=== PATIENT | female | born 1950 | race Caucasian/White ===

== ENCOUNTER 2016-11-24 13:17 | Outpatient (CLI) | payer SELFPAY | END 2016-11-24 13:18 | disposition home or self-care (01) | DX: Z01.89 Encounter for other specified special examinations (principal) ==

== ENCOUNTER 2018-02-26 08:00 | Outpatient (CLI) | payer MEDICARE ==
[2018-02-26 18:52] LABS: BASOPHILS # (AUTO) 0.1 10^3/uL (0.0-0.1); BASOPHILS % (AUTO) 1.5 %; EOSINOPHILS # (AUTO) 0.1 10^3/uL (0.0-0.7); EOSINOPHILS % (AUTO) 1.3 %; HGB - HEMOGLOBIN 15.4 g/dL (12.0-16.0); LYMPHOCYTES # (AUTO) 1.9 10^3/uL (1.5-3.5); LYMPHOCYTES % (AUTO) 38.4 %; MEAN CORPUSCULAR HEMOGLOBIN 31.5 pg (27.0-31.0); MEAN CORPUSCULAR HGB CONC 32.8 g/dL (32.0-36.0); MEAN CORPUSCULAR VOLUME 95.8 fL (81.0-99.0); MEAN PLATELET VOLUME 8.7 fL (7.9-10.8); MONOCYTES # (AUTO) 0.4 10^3/uL (0.0-1.0); MONOCYTES % (AUTO) 8.1 %; NEUTROPHILS # (AUTO) 2.5 10^3/uL (1.5-6.6); NEUTROPHILS % (AUTO) 50.7 %; PLT - PLATELET COUNT 329 10^3/uL (130-450); RED BLOOD COUNT 4.89 10^6/uL (4.20-5.40); WHITE BLOOD COUNT 4.9 x10^3/uL (4.8-10.8)
[2018-02-26 19:08] LABS: ALBUMIN 4.8 g/dL (3.2-5.5); ALBUMIN/GLOBULIN RATIO 1.9 (1.0-2.2); ALKALINE PHOSPHATASE 31 IU/L (42-121); ALT ALANINE AMINOTRANSFERASE 21 IU/L (10-60); AST ASPARTATE AMINOTRANSFERASE 21 IU/L (10-42); BILIRUBIN,TOTAL 0.6 mg/dL (0.2-1.0); BUN - BLOOD UREA NITROGEN 18 mg/dL (6-20); CALCIUM 9.2 mg/dL (8.5-10.3); CARBON DIOXIDE - CO2 24 mmol/L (21-32); CHLORIDE 103 mmol/L (101-111); CHOL/HDL RATIO 3.1 (<4.4); CHOLESTEROL 367 mg/dL; CREATININE 0.5 mg/dL (0.4-1.0); GFR - MDRD 123 (>89); GLUCOSE 99 mg/dL (70-100); HDL CHOLESTEROL 117 mg/dL; LDL CHOLESTEROL,CALCULATED 240 mg/dL; LDL/HDL RATIO 2.1 (<4.4); SODIUM 137 mmol/L (135-145); TOTAL PROTEIN 7.3 g/dL (6.7-8.2); VLDL CHOLESTEROL 10 mg/dL
== END 2018-02-26 08:01 | disposition home or self-care (01) ==
LOC: LAB.WCP 08:00
PROVIDERS: ATTEND Physician Assistant Medical
DX: E78.5 Hyperlipidemia, unspecified (principal); L25.9 Unspecified contact dermatitis, unspecified cause
CPT/HCPCS: 36415; 80053; 80061; 83721; 85025

== ENCOUNTER 2018-06-18 10:27 | Outpatient (CLI) | payer MEDICARE ==
[2018-06-18 19:21] LABS: ALBUMIN 4.4 g/dL (3.2-5.5); ALBUMIN/GLOBULIN RATIO 1.7 (1.0-2.2); ALKALINE PHOSPHATASE 33 IU/L (42-121); ALT ALANINE AMINOTRANSFERASE 20 IU/L (10-60); AST ASPARTATE AMINOTRANSFERASE 20 IU/L (10-42); BILIRUBIN,TOTAL 0.6 mg/dL (0.2-1.0); BUN - BLOOD UREA NITROGEN 14 mg/dL (6-20); CALCIUM 8.8 mg/dL (8.5-10.3); CARBON DIOXIDE - CO2 25 mmol/L (21-32); CHLORIDE 105 mmol/L (101-111); CHOL/HDL RATIO 3.6 (<4.4); CHOLESTEROL 319 mg/dL; CREATININE 0.5 mg/dL (0.4-1.0); GFR - MDRD 122 (>89); GLUCOSE 98 mg/dL (70-100); HDL CHOLESTEROL 88 mg/dL; LDL CHOLESTEROL,CALCULATED 219 mg/dL; LDL/HDL RATIO 2.5 (<4.4); SODIUM 140 mmol/L (135-145); VLDL CHOLESTEROL 12 mg/dL
[2018-06-21 15:40] LABS: 18 KD (IGG) BAND NON-REACTIVE; 23 KD (IGG) BAND NON-REACTIVE; 23 KD (IGM) BLOT NON-REACTIVE; 28 KD (IGG) BAND NON-REACTIVE; 30 KD (IGG) BAND NON-REACTIVE; 39 KD (IGG) BAND NON-REACTIVE; 39 KD (IGM) BLOT NON-REACTIVE; 41 KD (IGG) BAND NON-REACTIVE; 41 KD (IGM) BLOT NON-REACTIVE; 45 KD (IGG) BAND NON-REACTIVE; 58 KD (IGG) BAND NON-REACTIVE; 66 KD (IGG) BAND NON-REACTIVE; 93 KD (IGG) BAND NON-REACTIVE
== END 2018-06-18 10:28 | disposition home or self-care (01) ==
LOC: LAB.WCP 10:27
PROVIDERS: ATTEND Physician Assistant Medical
DX: E78.5 Hyperlipidemia, unspecified (principal); R21 Rash and other nonspecific skin eruption
CPT/HCPCS: 36415; 80053; 80061; 83721; 86617

== ENCOUNTER 2018-09-18 08:00 | Outpatient (CLI) | payer MEDICARE ==
[2018-09-18 13:24] LABS: CHOL/HDL RATIO 2.9 (<4.4); CHOLESTEROL 322 mg/dL; HDL CHOLESTEROL 111 mg/dL; LDL CHOLESTEROL,CALCULATED 201 mg/dL; LDL/HDL RATIO 1.8 (<4.4); VLDL CHOLESTEROL 10 mg/dL
== END 2018-09-18 23:59 | disposition home or self-care (01) ==
LOC: LAB.WCP 08:00
PROVIDERS: ATTEND Physician Assistant Medical
DX: E78.5 Hyperlipidemia, unspecified (principal)
CPT/HCPCS: 36415; 80061; 83721

== ENCOUNTER 2018-12-24 08:00 | Outpatient (CLI) | payer MEDICARE ==
[2018-12-24 19:51] LABS: CHOL/HDL RATIO 3.6 (<4.4); CHOLESTEROL 339 mg/dL; HDL CHOLESTEROL 93 mg/dL; LDL CHOLESTEROL,CALCULATED 233 mg/dL; LDL/HDL RATIO 2.5 (<4.4); VLDL CHOLESTEROL 13 mg/dL
== END 2018-12-24 23:59 | disposition home or self-care (01) ==
LOC: LAB.WCP 08:00
PROVIDERS: ATTEND Physician Assistant Medical
DX: E78.5 Hyperlipidemia, unspecified (principal)
CPT/HCPCS: 36415; 80061; 83721

== ENCOUNTER 2020-04-23 15:09 | Outpatient (CLI) | payer MEDICARE ==
--- NOTE | 2020-04-23 15:11 | XRAY Report ---
PROCEDURE: Tib/Fib LT INDICATIONS: LEFT LEG PAIN TECHNIQUE: 2 views of the tibia and fibula were acquired. COMPARISON: None FINDINGS: Bones: No fractures or dislocations. No suspicious bony lesions. Soft tissues: No suspicious soft tissue calcifications or masses. IMPRESSION: No trauma found, source of current pain is not identified. Reviewed by: Jose Alberto Ceja MD on 04/23/2020 3:10 PM PDT Approved by: Jose Alberto Ceja MD on 04/23/2020 3:10 PM PDT Station ID: [id number]
== END 2020-04-23 23:59 | disposition home or self-care (01) ==
LOC: DI.WCP 15:09
PROVIDERS: ATTEND Physician Assistant Medical
DX: M79.605 Pain in left leg (principal)

== ENCOUNTER 2021-02-16 08:00 | Outpatient (CLI) | payer MEDICARE ==
[2021-02-16 11:39] LABS: BASOPHILS # (AUTO) 0.1 10^3/uL (0.0-0.1); BASOPHILS % (AUTO) 1.5 %; EOSINOPHILS # (AUTO) 0.1 10^3/uL (0.0-0.7); EOSINOPHILS % (AUTO) 2.1 %; HCT - HEMATOCRIT 44.4 % (37.0-47.0); HGB - HEMOGLOBIN 14.5 g/dL (12.0-16.0); LYMPHOCYTES # (AUTO) 2.4 10^3/uL (1.5-3.5); MEAN CORPUSCULAR HEMOGLOBIN 30.9 pg (27.0-31.0); MEAN CORPUSCULAR HGB CONC 32.7 g/dL (32.0-36.0); MEAN CORPUSCULAR VOLUME 94.7 fL (81.0-99.0); MONOCYTES # (AUTO) 0.5 10^3/uL (0.0-1.0); MONOCYTES % (AUTO) 9.2 %; NEUTROPHILS # (AUTO) 2.2 10^3/uL (1.5-6.6); NEUTROPHILS % (AUTO) 41.8 %; PLT - PLATELET COUNT 316 10^3/uL (130-450); RED BLOOD COUNT 4.69 10^6/uL (4.20-5.40); RED CELL DISTRIBUTION WIDTH 13.2 % (12.0-15.0); WHITE BLOOD COUNT 5.2 x10^3/uL (4.8-10.8)
[2021-02-16 12:10] LABS: ALBUMIN 4.7 g/dL (3.2-5.5); ALBUMIN/GLOBULIN RATIO 2.2 (1.0-2.2); ALKALINE PHOSPHATASE 35 IU/L (42-121); ALT ALANINE AMINOTRANSFERASE 21 IU/L (10-60); AST ASPARTATE AMINOTRANSFERASE 20 IU/L (10-42); BILIRUBIN,TOTAL 0.5 mg/dL (0.2-1.0); BUN - BLOOD UREA NITROGEN 15 mg/dL (6-20); CALCIUM 9.2 mg/dL (8.5-10.3); CARBON DIOXIDE - CO2 25 mmol/L (21-32); CHLORIDE 104 mmol/L (101-111); CHOL/HDL RATIO 3.7 (<4.4); CHOLESTEROL 358 mg/dL; CREATININE 0.6 mg/dL (0.4-1.0); GFR - MDRD 99 (>89); GLUCOSE 99 mg/dL (70-100); HDL CHOLESTEROL 97 mg/dL; LDL CHOLESTEROL,CALCULATED 247 mg/dL; LDL/HDL RATIO 2.5 (<4.4); POTASSIUM 3.8 mmol/L (3.5-5.0); SODIUM 139 mmol/L (135-145); TOTAL PROTEIN 6.8 g/dL (6.7-8.2); TRIGLYCERIDES 70 mg/dL; VLDL CHOLESTEROL 14 mg/dL
== END 2021-02-16 23:59 | disposition home or self-care (01) ==
LOC: LAB.WCP 08:00
PROVIDERS: ATTEND Physician Assistant Medical
DX: E78.5 Hyperlipidemia, unspecified (principal); R42 Dizziness and giddiness
CPT/HCPCS: 36415; 80053; 80061; 83721; 85025

== ENCOUNTER 2021-03-28 13:00 | Outpatient (CLI) | payer MEDICARE | END 2021-03-28 23:59 | disposition home or self-care (01) | LOC: LAB.N 13:00 | PROVIDERS: ATTEND Family Medicine | DX: R39.9 Unspecified symptoms and signs involving the genitourinary system (principal) | CPT/HCPCS: 87077; 87086; 87181 ==

== ENCOUNTER 2021-03-31 09:00 | Outpatient (CLI) | payer MEDICARE | END 2021-03-31 23:59 | disposition home or self-care (01) | LOC: LAB.N 09:00 | PROVIDERS: ATTEND Nurse Practitioner | DX: R39.9 Unspecified symptoms and signs involving the genitourinary system (principal) | CPT/HCPCS: 87077; 87086; 87181 ==

== ENCOUNTER 2021-05-27 08:00 | Outpatient (CLI) | payer MEDICARE ==
[2021-05-27 18:18] LABS: CHOL/HDL RATIO 2.7 (<4.4); CHOLESTEROL 253 mg/dL; HDL CHOLESTEROL 93 mg/dL; LDL CHOLESTEROL,CALCULATED 148 mg/dL; LDL/HDL RATIO 1.6 (<4.4); TRIGLYCERIDES 58 mg/dL; VLDL CHOLESTEROL 12 mg/dL
== END 2021-05-27 23:59 | disposition home or self-care (01) ==
LOC: LAB.WCP 08:00
PROVIDERS: ATTEND Physician Assistant Medical
DX: E78.5 Hyperlipidemia, unspecified (principal)
CPT/HCPCS: 36415; 80061; 83721

== ENCOUNTER 2021-12-20 08:00 | Outpatient (CLI) | payer MEDICARE | END 2021-12-20 08:01 | disposition home or self-care (01) | LOC: LAB.N 08:00 | PROVIDERS: ATTEND Physician Assistant Medical | DX: U07.1 COVID-19 (principal); E78.5 Hyperlipidemia, unspecified | CPT/HCPCS: 36415; 80053; 80061; U0004; 83721 ==

== ENCOUNTER 2021-12-20 10:52 | Outpatient (CLI) | payer MEDICARE ==
[2021-12-20 19:06] LABS: ALBUMIN 4.4 g/dL (3.2-5.5); ALBUMIN/GLOBULIN RATIO 1.8 (1.0-2.2); ALKALINE PHOSPHATASE 38 IU/L (42-121); ALT ALANINE AMINOTRANSFERASE 23 IU/L (10-60); AST ASPARTATE AMINOTRANSFERASE 25 IU/L (10-42); BILIRUBIN,TOTAL 0.5 mg/dL (0.2-1.0); BUN - BLOOD UREA NITROGEN 13 mg/dL (6-20); CALCIUM 8.8 mg/dL (8.5-10.3); CARBON DIOXIDE - CO2 25 mmol/L (21-32); CHLORIDE 104 mmol/L (101-111); CHOL/HDL RATIO 2.1 (<4.4); CHOLESTEROL 194 mg/dL; CREATININE 0.6 mg/dL (0.4-1.0); GFR - MDRD 98 (>89); GLUCOSE 94 mg/dL (70-100); HDL CHOLESTEROL 91 mg/dL; LDL CHOLESTEROL,CALCULATED 94 mg/dL; POTASSIUM 3.5 mmol/L (3.5-5.0); SODIUM 137 mmol/L (135-145); TOTAL PROTEIN 6.9 g/dL (6.7-8.2); TRIGLYCERIDES 45 mg/dL; VLDL CHOLESTEROL 9 mg/dL
== END 2021-12-20 10:53 | disposition home or self-care (01) ==
LOC: LAB.N 10:52
PROVIDERS: ATTEND Physician Assistant Medical
DX: E78.5 Hyperlipidemia, unspecified (principal)
CPT/HCPCS: 36415; 80053; 80061; 83721

== ENCOUNTER 2022-07-05 07:16 | Outpatient (CLI) | payer MEDICARE ==
[2022-07-05 13:03] LABS: ALBUMIN/GLOBULIN RATIO 2.3 (1.0-2.2); ALKALINE PHOSPHATASE 31 IU/L (42-121); ALT ALANINE AMINOTRANSFERASE 31 IU/L (10-60); AST ASPARTATE AMINOTRANSFERASE 23 IU/L (10-42); BILIRUBIN,TOTAL 0.5 mg/dL (0.2-1.0); BUN - BLOOD UREA NITROGEN 18 mg/dL (6-20); CALCIUM 9.4 mg/dL (8.5-10.3); CARBON DIOXIDE - CO2 25 mmol/L (21-32); CHLORIDE 102 mmol/L (101-111); CHOL/HDL RATIO 2.8 (<4.4); CHOLESTEROL 259 mg/dL; CREATININE 0.7 mg/dL (0.4-1.0); GFR - MDRD 82 (>89); GLUCOSE 109 mg/dL (70-100); HDL CHOLESTEROL 93 mg/dL; LDL CHOLESTEROL,CALCULATED 156 mg/dL; LDL/HDL RATIO 1.7 (<4.4); SODIUM 136 mmol/L (135-145); TOTAL PROTEIN 7.2 g/dL (6.7-8.2); TRIGLYCERIDES 50 mg/dL; VLDL CHOLESTEROL 10 mg/dL
== END 2022-07-05 07:17 | disposition home or self-care (01) ==
LOC: LAB.N 07:16
PROVIDERS: ATTEND Physician Assistant Medical
DX: E78.5 Hyperlipidemia, unspecified (principal)
CPT/HCPCS: 36415; 80053; 80061; 83721

== ENCOUNTER 2022-09-13 15:17 | Outpatient (CLI) | payer MEDICARE ==
--- NOTE | 2022-09-13 20:29 | XRAY Report ---
PROCEDURE: Pelvis 1 View INDICATIONS: RT HIP PAIN TECHNIQUE: 2 view(s) of the pelvis acquired. COMPARISON: Hip radiographs 03/30/2016. FINDINGS: Bones: No fractures or dislocations. 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 Minimally progressed com pared to 2016. No suspicious bony lesions. Soft tissues: Visualized bowel gas pattern is normal. No suspicious soft tissue calcifications. IMPRESSION: Moderate right hip DJD. Mild left hip DJD. Reviewed by: Trevor Ruvalcaba MD on 09/13/2022 8:28 PM PST Approved by: Trevor Ruvalcaba MD on 09/13/2022 8:28 PM PST Station ID: [id number]
== END 2022-09-13 15:18 | disposition home or self-care (01) ==
LOC: DI 15:17
PROVIDERS: ATTEND Physician Assistant Medical
DX: M16.0 Bilateral primary osteoarthritis of hip (principal)

== ENCOUNTER 2022-10-25 12:21 | Outpatient (CLI) | payer MEDICARE ==
[2022-10-25 13:07] LABS: ALBUMIN 4.5 g/dL (3.2-5.5); ALBUMIN/GLOBULIN RATIO 1.8 (1.0-2.2); ALKALINE PHOSPHATASE 36 IU/L (42-121); ALT ALANINE AMINOTRANSFERASE 23 IU/L (10-60); AST ASPARTATE AMINOTRANSFERASE 24 IU/L (10-42); BILIRUBIN,TOTAL 0.6 mg/dL (0.2-1.0); BUN - BLOOD UREA NITROGEN 16 mg/dL (6-20); CALCIUM 9.2 mg/dL (8.5-10.3); CARBON DIOXIDE - CO2 25 mmol/L (21-32); CHLORIDE 104 mmol/L (101-111); CHOL/HDL RATIO 2.2 (<4.4); CHOLESTEROL 221 mg/dL; CREATININE 0.6 mg/dL (0.4-1.0); GFR - MDRD 98 (>89); GLUCOSE 102 mg/dL (70-100); HDL CHOLESTEROL 101 mg/dL; LDL CHOLESTEROL,CALCULATED 112 mg/dL; LDL/HDL RATIO 1.1 (<4.4); POTASSIUM 3.7 mmol/L (3.5-5.0); SODIUM 137 mmol/L (135-145); TRIGLYCERIDES 40 mg/dL; VLDL CHOLESTEROL 8 mg/dL
== END 2022-10-25 12:22 | disposition home or self-care (01) ==
LOC: LAB 12:21
PROVIDERS: ATTEND Physician Assistant Medical
DX: E78.5 Hyperlipidemia, unspecified (principal)
CPT/HCPCS: 36415; 80053; 80061; 83721

== ENCOUNTER 2023-10-24 10:50 | Outpatient (CLI) | payer MEDICARE ==
[2023-10-24 11:00] LABS: BASOPHILS # (AUTO) 0.1 10^3/uL (0.0-0.1); EOSINOPHILS # (AUTO) 0.1 10^3/uL (0.0-0.7); EOSINOPHILS % (AUTO) 2.1 %; HCT - HEMATOCRIT 40.9 % (37.0-47.0); HGB - HEMOGLOBIN 13.5 g/dL (12.0-16.0); LYMPHOCYTES # (AUTO) 1.7 10^3/uL (1.5-3.5); LYMPHOCYTES % (AUTO) 33.9 %; MEAN PLATELET VOLUME 9.1 fL (7.9-10.8); MONOCYTES # (AUTO) 0.4 10^3/uL (0.0-1.0); MONOCYTES % (AUTO) 8.2 %; NEUTROPHILS # (AUTO) 2.8 10^3/uL (1.5-6.6); NEUTROPHILS % (AUTO) 54.6 %; PLT - PLATELET COUNT 308 10^3/uL (130-450); RED BLOOD COUNT 4.35 10^6/uL (4.20-5.40); RED CELL DISTRIBUTION WIDTH 13.1 % (12.0-15.0); WHITE BLOOD COUNT 5.1 x10^3/uL (4.8-10.8)
[2023-10-24 11:43] LABS: CHOL/HDL RATIO 2.6 (<4.4); CHOLESTEROL 196 mg/dL; HDL CHOLESTEROL 76 mg/dL; LDL CHOLESTEROL,CALCULATED 102 mg/dL; LDL/HDL RATIO 1.3 (<4.4); TRIGLYCERIDES 91 mg/dL (48-352); VLDL CHOLESTEROL 18 mg/dL
[2023-10-24 12:20] LABS: ALBUMIN 4.6 g/dL (3.2-5.5); ALBUMIN/GLOBULIN RATIO 2.1 (1.0-2.2); ALKALINE PHOSPHATASE 42 IU/L (42-121); ALT ALANINE AMINOTRANSFERASE 20 IU/L (10-60); AST ASPARTATE AMINOTRANSFERASE 18 IU/L (10-42); BILIRUBIN,TOTAL 0.4 mg/dL (0.2-1.0); BUN - BLOOD UREA NITROGEN 17 mg/dL (6-20); CALCIUM 9.4 mg/dL (8.5-10.3); CHLORIDE 105 mmol/L (101-111); CREATININE 0.6 mg/dL (0.6-1.3); GFR - MDRD 98 (>89); GLUCOSE 94 mg/dL (74-104); POTASSIUM 4.3 mmol/L (3.5-4.5); SODIUM 138 mmol/L (135-145); TOTAL PROTEIN 6.8 g/dL (6.4-8.9)
[2023-10-24 12:26] LABS: CARBON DIOXIDE - CO2 28 mmol/L (21-32)
== END 2023-10-24 10:51 | disposition home or self-care (01) ==
LOC: LAB 10:50
PROVIDERS: ATTEND Physician Assistant Medical
DX: J30.9 Allergic rhinitis, unspecified (principal); E78.5 Hyperlipidemia, unspecified
CPT/HCPCS: 36415; 80053; 80061; 83721; 85025

== ENCOUNTER 2024-05-09 14:36 | Day surgery (SDC) | payer MEDICARE ==
[2024-05-09 15:07] LABS: BASOPHILS # (AUTO) 0.1 10^3/uL (0.0-0.1); BASOPHILS % (AUTO) 0.5 %; EOSINOPHILS # (AUTO) 0.1 10^3/uL (0.0-0.7); EOSINOPHILS % (AUTO) 0.4 %; HCT - HEMATOCRIT 40.3 % (37.0-47.0); HGB - HEMOGLOBIN 13.2 g/dL (12.0-16.0); LYMPHOCYTES # (AUTO) 1.2 10^3/uL (1.5-3.5); MEAN CORPUSCULAR HEMOGLOBIN 30.3 pg (27.0-31.0); MEAN CORPUSCULAR HGB CONC 32.8 g/dL (32.0-36.0); MEAN CORPUSCULAR VOLUME 92.6 fL (81.0-99.0); MEAN PLATELET VOLUME 9.2 fL (7.9-10.8); MONOCYTES # (AUTO) 0.9 10^3/uL (0.0-1.0); MONOCYTES % (AUTO) 5.9 %; NEUTROPHILS % (AUTO) 84.8 %; PLT - PLATELET COUNT 301 10^3/uL (130-450); RED BLOOD COUNT 4.35 10^6/uL (4.20-5.40); WHITE BLOOD COUNT 15.4 x10^3/uL (4.8-10.8)
[2024-05-09 15:24] LABS: ALBUMIN 4.6 g/dL (3.2-5.5); ALBUMIN/GLOBULIN RATIO 1.7 (1.0-2.2); ALKALINE PHOSPHATASE 50 IU/L (42-121); ALT ALANINE AMINOTRANSFERASE 16 IU/L (10-60); AST ASPARTATE AMINOTRANSFERASE 16 IU/L (10-42); BILIRUBIN,TOTAL 0.8 mg/dL (0.2-1.0); BUN - BLOOD UREA NITROGEN 10 mg/dL (6-20); CALCIUM 9.6 mg/dL (8.5-10.3); CARBON DIOXIDE - CO2 25 mmol/L (21-32); CHLORIDE 100 mmol/L (101-111); CREATININE 0.6 mg/dL (0.6-1.3); GFR - MDRD 97 (>89); GLUCOSE 108 mg/dL (74-104); LIPASE < 10 U/L (11-82); POTASSIUM 3.7 mmol/L (3.5-4.5); SODIUM 133 mmol/L (135-145); TOTAL PROTEIN 7.3 g/dL (6.4-8.9)
--- NOTE | 2024-05-09 15:54 | ED Physician Documentation ---
History of Present Illness - Stated complaint Stated Complaint: ABD PX,PAYTON - Chief complaint Chief Complaint: Abd Pain - Additonal information Additional information: Patient is a 74-year-old female presenting to the emergency department with abdominal pain that has been going on intermittently for about a month patient stopped taking milk which did seem to help her symptoms however last night she had severe 10 out of 10 lower abdominal pain. She notes pain persisted to 7 out of 10 this morning and she continues to have symptoms. She denies any pain worse on 1 side versus the other. She notes pain is worse in the lower abdomen. She has no history of abdominal surgeries. She tried some olive oil last night with no relief. She had a bowel movement last night that was normal no diarrhea. She denies any urinary symptoms associated with this. PD PAST MEDICAL HISTORY - Past Medical History Past Medical History: Yes Psych: Anxiety - Past Surgical History HEENT: Other - Allergies Allergies/Adverse Reactions: Allergies Allergy/AdvReac Type Severity Reaction Status Date / Time Sulfa (Sulfonamide Allergy Unknown Verified 05/09/24 14:44 Antibiotics) - Social History Does the pt smoke?: No Smoking Status: Never smoker Does the pt drink ETOH?: No Does the pt have substance abuse?: No - Immunizations Immunizations are current?: Yes PD ED PE NORMAL - Vitals Vital signs reviewed: Yes - General General: Alert and oriented X 3 - HEENT HEENT: Atraumatic - Neck Neck: Supple, no meningeal sign - Cardiac Cardiac: RRR, No murmur, No gallop, No rub - Respiratory Respiratory: No respiratory distress, Clear bilaterally - Abdomen Abdomen: Normal bowel sounds, Other (Patient has back active bowel sounds on auscultation. Generalized abdominal tenderness on examination without rebound but generalized guarding noted. No CVA tenderness appreciated.) - Female Female : Deferred - Derm Derm: Normal color, No rash - Neuro Neuro: Alert and oriented X 3 Eye Opening: Spontaneous Motor: Obeys Commands Verbal: Oriented GCS Score: 15 Results - Vitals Vitals: Vital Signs - 24 hr 05/09/24 05/09/24 14:44 17:41 Temperature 36.8 C 36.8 C Heart Rate 86 86 Respiratory 16 16 Rate Blood Pressure 160/80 H 160/80 H O2 Saturation 99 99 Oxygen O2 Source Room air - Labs Labs: Laboratory Tests 05/09/24 05/09/24 14:58 14:58 WBC 15.4 H RBC 4.35 Hgb 13.2 Hct 40.3 MCV 92.6 MCH 30.3 MCHC 32.8 RDW 13.0 Plt Count 301 MPV 9.2 Neut # (Auto) 13.0 H Lymph # (Auto) 1.2 L [place] # (Auto) 0.9 Eos # (Auto) 0.1 Baso # (Auto) 0.1 Absolute Nucleated RBC 0.00 Nucleated RBC % 0.0 Sodium 133 L Potassium 3.7 Chloride 100 L Carbon Dioxide 25 Anion Gap 8.0 BUN 10 Creatinine 0.6 Estimated GFR (MDRD) 97 Glucose 108 H Calcium 9.6 Total Bilirubin 0.8 AST 16 ALT 16 Alkaline Phosphatase 50 Total Protein 7.3 Albumin 4.6 Globulin 2.7 Albumin/Globulin Ratio 1.7 Lipase < 10 L - Rads (name of study) CT abdomen pelvis Relevant Findings:: EMP independent interpretation of test PD Medical Decision Making - ED course Complexity details: reviewed old records, reviewed results ED course: Patient is a 74-year-old female presenting to the emergency department with abdominal pain headache symptoms worsened last night but she notes they may have been going on for a month now due to intermittent lower abdominal pain. She notes last night she had severe 10 out of 10 pain and symptoms persisted into this morning. Patient initially went to urgent care but was instructed to come here after she was notably tender in all 4 quadrants on palpation. Active bowel sounds on auscultation patient is afebrile nontachycardic on arrival. Generalized guarding on examination with tenderness in lower quadrants. No appreciable guarding on examination. CT scan here in the emergency department remarkable for acute appendicitis. Patient started on Zosyn and discussed case with on-call surgeon Dr. Rose she will come evaluate patient she is not on any blood thinners patient did become anxious when I told her this we will give small dose of her home anxiety medications here in the ED. Patient last ate at 9 AM this morning cup of olive oil. Patient agreeable with plan.Patient will be taken to surgery for acute appendicitis. Departure - Departure Disposition: ED Transfer to [facility] Clinical Impression: Acute appendicitis Condition: Good
[2024-05-09] MEDS ORDERED: iohexoL-300 100 ML VIAL ONE (16:02)
[2024-05-09] MEDS: iohexoL-300 100 ML VIAL IVP ONE (16:27)
--- NOTE | 2024-05-09 16:42 | CT Report ---
PROCEDURE: Abdomen/Pelvis W INDICATIONS: abdominal pain CONTRAST: Omni 300 100ml TECHNIQUE: After the administration of intravenous contrast, a CT scan of the abdomen and pelvis was performed. Images were recorded and evaluated at appropriate window settings. Reformats: coronal and sagittal. F or radiation dose reduction, the following was used: automated exposure control, adjustment of mA and /or kV according to patient size. COMPARISON: None. FINDINGS: Image quality: Diagnostic. Lower chest: Unremarkable. Liver: No solid mass. 1.9 cm liver hemangioma, image 16 of series 3.. Gallbladder: Distended gallbladder without wall thickening or calcified stones. Biliary tree: No intrahepatic or extrahepatic dilation, accounting for age. Spleen: No splenomegaly. Pancreas: No pancreatic ductal dilation. Adrenals: No adrenal nodule. Kidneys and ureters: No hydronephrosis. No renal cystic lesion which requires follow up. No solid mas s. Stomach, bowel and peritoneum: Suspect acute appendicitis. There is a structure which may represent a mildly dilated blind-ending appendix with a possible obstructing fecalith and wall enhancement. Refe rence axial images 92 through 95. Liquid right colonic contents. Lymph nodes: No central or retroperitoneal adenopathy. Vessels: No infrarenal aortic aneurysm. Patent portal vein. PELVIS Reproductive organs: Retroverted uterus. No adnexal masses.. Bladder: No abnormal wall thickening, accounting for underdistention. Pelvic lymph nodes: No pelvic adenopathy by size criteria. Bones: No aggressive osseous abnormality. Scoliotic curvature.. Other: No significant ventral or inguinal hernia. IMPRESSION: 1. Suspect acute appendicitis. 2. Liquid right colonic contents. 3. Incidental 1.9 cm liver hemangioma Reviewed by: Florin Cash MD on 05/09/2024 4:41 PM PDT Approved by: Florin Cash MD on 05/09/2024 4:41 PM PDT Station ID: [id number]
[2024-05-09] MEDS: PIPERACILLIN/TAZOBACTAM 3.375 GM in SODIUM CHLORIDE 0.9% MINIBAG 100 ML IV STA (17:27)
--- NOTE | 2024-05-09 17:37 | SURGERY HX AND PHYSICAL(T) ---
Surgical History & Physical - Chief Complaint/HPI Chief Complaint: abdominal pain History of Present Illness: This is a 74-year-old female who states that she has felt increased abdominal bloating over the last 1 month. She cut her dairy and milk intake and noted that her abdominal distention appeared to improve. Yesterday evening at approximately 6 PM she had acute onset of periumbilical abdominal discomfort that felt like increased bloating and possibly constipation. The patient did h ave a nonbloody, normal bowel movement last night. She did not have any fevers or chills. The patient took her amitriptyline, zolpidem, and half of a diazepam to sleep last night she was able to sleep but awoke at 430 this morning and took the other half of the diazepam as she felt she needed more sleep. She did note continued abdominal pain at that time. When she woke up several hours later, she felt her pain was somewhat improved, but it worsened throughout the morning. At approximately noon, she felt the pain was unbearable and migrated to her lower abdomen. At this time she presented to the emergency department. Her last p.o. intake was her medications and some all of 3-year-old this morning at approximately 9 AM. She denies any nausea, vomiting, fevers, chills, chest pain, or shortness of breath. Aside from her recent abdominal bloating, she has never had symptoms similar in the past. She has never had any prior abdominal surgeries. - PMH/PSH/Social Hx Does the pt have a hx of MRSA?: No Psychiatric: Anxiety, Other (Insomnia) Eyes Ears Nose Throat (EENT): Tonsil/Adenoidectomy, Other Smoking Status: Never smoker Does the pt drink ETOH?: No Does the pt have substance abuse?: No - Family Hx Family Hx: Other (Mother had a stroke and last year. Father had coronary artery disease.) - Home Meds and Allergies Allergies/Adverse Reactions: Allergies Allergy/AdvReac Type Severity Reaction Status Date / Time Sulfa (Sulfonamide Allergy Unknown Verified 05/09/24 14:44 Antibiotics) - Review of Systems Constitutional: Other (A complete 10 point review of symptoms is otherwise negative except for that noted in HPI and PMH.) - Vital Signs Heart Rate: 86 Blood Pressure: 160/80 Temperature: 36.8 C Respiratory Rate: 16 O2 Saturation: 99 Weight (kg): 56.3 kg Height: 1.7 m - Physical Exam Comments/Other: GEN: No acute distress, appears stated age, alert and oriented HEENT: NCAT, MMM, EOMI NEURO: CN II-XII grossly intact, no obvious focal deficits CV: RRR PULM: Nonlabored, on room air ABD: soft, with bilateral lower quadrant and periumbilical tenderness to palpation, most notably in the right lower quadrant where she has positive rebound, otherwise no rebound or guarding. Negative psoas sign, positive Rovsing sign, negative heeltap CIRCULATORY: no clubbing, cyanosis, or edema SKIN: no lesions appreciated LYMPH: no obvious lymphadenopathy MSK: 4/4 strength in all extremities PSYCH: Affect is appropriate - Patient Review Patient Review: Problems were reviewed with the patient during this visit. Medications were reviewed with the patient during this visit. Allergies were reviewed this patient during this visit. Pertinent Tests Reviewed: All pertitent test for this patient were reviewed. - Assessment & Plan Assessment and Plan: This is a 74-year-old female with: 1. Acute appendicitis The patient's history, physical, laboratory studies, and imaging are consistent with this diagnosis. I personally interpreted the images and reviewed the report from the patient's CT scan today. It demonstrates acute, uncomplicated appendicitis without any significant free fluid or free air. There does appear to be a fecalith. I discussed the natural history of acute appendicitis with the patient. We also discussed the risks, benefits, and alternatives of laparoscopic appendectomy including the the use of antibiotics alone. Risks discussed include bleeding, infection, damage to surrounding structures, and the need for further surgeries or procedures. We discussed the intraoperative and postoperative plan. The patient and voiced understanding, her questions were answered, and she wish to proceed with surgery. A consent was signed by the patient in the emergency department prior to surgery. -The patient has been n.p.o. since 9:00 this morning, perioperative antibiotics have been ordered. The need for postoperative antibiotics will be determined intraoperatively. 2. Anxiety, insomnia -I will hold the patient's home medications while she is in the hospital secondary to use of IV narcotic and other medications. I will recommend that she not restart her home sleeping medication or anxiety medication until she is no longer requiring narcotic pain medication. I would like the patient to follow-up with me in clinic in 2 weeks. The patient will be admitted outpatient surgical status with the plan for dis charge tomorrow morning.
[2024-05-09] MEDS ORDERED: ONDANSETRON 4 MG/2 ML VIAL IVP PRN ×3 (17:41→19:20)
[2024-05-09] MEDS ORDERED: MORPHINE 2 MG/ML CARPUJECT IVP PRN ×2 (17:41→18:36)
[2024-05-09] MEDS ORDERED: BUPIVACAINE 0.25% PF 10 ML VIAL ONE (18:01)
[2024-05-09] MEDS ORDERED: LIDOCAINE 1%-EPI 1:100000 20 ML MDV ONE (18:01)
[2024-05-09] MEDS: SODIUM CHLORIDE 0.9% 1,000 ML IV SCH (18:03)
--- NOTE | 2024-05-09 18:35 | ANESTHESIA ---
Pre-Anesthesia VS, & Labs - Diagnosis acute appendicitis - Procedure laparoscopic appendectomy Vital Signs: Temp Pulse Resp BP Pulse Ox O2 Flow Rate 36.8 C 86 16 160/80 H 99 05/09/24 17:41 05/09/24 17:41 05/09/24 17:41 05/09/24 17:41 05/09/24 17:41 Height: 5 ft 7 in Weight (kg): 56.3 kg Body Mass Index: 19.4 BMI Classification: Normal - NPO >8 hours - Is Patient ?: No - Lab Results Current Lab Results: Laboratory Tests 05/09/24 14:58: Sodium 133 L, Potassium 3.7, Chloride 100 L, Carbon Dioxide 25, Anion Gap 8.0, BUN 10, Creatinine 0.6, Estimated GFR (MDRD) 97, Glucose 108 H, Calcium 9.6, Total Bilirubin 0.8, AST 16, ALT 16, Alkaline Phosphatase 50, Total Protein 7.3, Albumin 4.6, Globulin 2.7, Albumin/Globulin Ratio 1.7, Lipase < 10 L 05/09/24 14:58: WBC 15.4 H, RBC 4.35, Hgb 13.2, Hct 40.3, MCV 92.6, MCH 30.3, MCHC 32.8, RDW 13.0, Plt Count 301, MPV 9.2, Neut # (Auto) 13.0 H, Lymph # (Auto) 1.2 L, [place] # (Auto) 0.9, Eos # (Auto) 0.1, Baso # (Auto) 0.1, Absolute Nucleated RBC 0.00, Nucleated RBC % 0.0 Lab results reviewed: Yes Fish Bones: 05/09/24 14:58 05/09/24 14:58 Home Medications and Allergies Active Medications Sodium Chloride (Normal Saline 0.9%) 1,000 mls @ 125 mls/hr IV .Q8H IVORY Last Admin: 05/09/24 18:03 Dose: 125 mls/hr Lorazepam (Lorazepam 2 Mg/Ml Vial) 0.5 mg IVP Q2H PRN PRN Reason: Anxiety Morphine Sulfate (Morphine 2 Mg/Ml Carpuject) 4 mg IVP Q2HR PRN PRN Reason: PAIN >8 Ondansetron HCl (Ondansetron 4 Mg/2 Ml Vial) 4 mg IVP Q6HR PRN PRN Reason: Nausea / Vomiting Allergies/Adverse Reactions: Allergies Allergy/AdvReac Type Severity Reaction Status Date / Time Sulfa (Sulfonamide Allergy Unknown Verified 05/09/24 14:44 Antibiotics) Anes History & Medical History - Anesthetic History Anesthesia Complications: reports: No previous complications Family history of Anesthesia Complications: Denies Family history of Malignant Hyperthermia: Denies - Medical History Cardiovascular: reports: Hypertension Pulmonary: reports: None Gastrointestinal: reports: GERD Endocrine/Autoimmune: reports: None 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, recent surgery) Smoking Status: Never smoker History of Cancer?: Yes - Surgical History Eyes Ears Nose Throat (EENT): reports: Other Exam General: Alert, Oriented x3, Cooperative Dental: WNL Mouth Openin Fingerbreadth Neck Mobility: Normal Mallampati classification: II Thyromental Distance: 4-6 cm Respiratory: Lungs clear, Normal breath sounds Cardiovascular: Regular rate Neurological: Normal speech Mental/Cognitive Status: Alert/Oriented X3, Normal for patient Cognitive Status: Within normal limits Plan Anesthesia Type: General Consent for Procedure(s) Verified and Reviewed: Yes Code Status: Attempt Resuscitation ASA classification: 2-Mild systemic disease Is this case an emergency?: Yes
[2024-05-09] MEDS ORDERED: ATROPINE ABBOJECT 1 MG/10 ML SYRINGE IVP PRN (18:36)
[2024-05-09] MEDS ORDERED: fentaNYL 100 MCG/2 ML VIAL IVP PRN (18:36)
[2024-05-09] MEDS ORDERED: HYDROmorphone 0.5 MG/0.5 ML SYRINGE IVP PRN (18:36)
[2024-05-09] MEDS ORDERED: METOCLOPRAMIDE 10 MG/2 ML VIAL IVP PRN (18:36)
[2024-05-09] MEDS ORDERED: NALOXONE 0.4 MG/ML VIAL IVP PRN (18:36)
[2024-05-09] MEDS ORDERED: ePHEDrine 50 MG/ML VIAL IVP PRN (18:36)
[2024-05-09] MEDS: BUPIVACAINE 0.25% PF 30 ML VIAL SUBQ ONE (19:00)
[2024-05-09] MEDS: LIDOCAINE 1%-EPI 1:100000 50 ML VIAL SUBQ ONE (19:00)
[2024-05-09] MEDS ORDERED: LACTATED RINGERS 1,000 ML IV SCH (19:00)
[2024-05-09] MEDS: LACTATED RINGERS 700 ML IV ONE ×2 (19:17→19:46)
--- NOTE | 2024-05-09 19:25 | OPERATIVE REPORT ---
Operative Report - General Procedure Date: 05/09/24 Planned Procedure: laparoscopic appendectomy Pre-Op Diagnosis: acute appendicitis Procedure Performed: laparoscopic appendectomy Post Op Diagnosis: acute appendicitis, non perforated - Procedure Note Primary Surgeon: Dr. Samira Rose Anesthesia Provider: Moe Crandall CRNA Anesthesia Technique: General ET tube, Local Pathology: appendix and contents Estimated Blood Loss (mL): 10 Urine Output (mL): 200 Indications: Patient had acute onset of epigastric abdominal pain last night that migrated to her lower abdomen today. Evaluation in the emergency department revealed acute appendicitis. I discussed the natural history of acute appendicitis with the patient. We also discussed the risks, benefits, and alternatives of laparoscopic appendectomy including the the use of antibiotics alone. Risks discussed include bleeding, infection, damage to surrounding structures, and the need for further surgeries or procedures. We discussed the intraoperative and postoperative plan. The patient and voiced understanding, her questions were answered, and she wish to proceed with surgery. A consent was signed by the patient. Findings: 1. Acute, nonperforated appendicitis Complications: None - Other Other Information/Narrative: The patient was brought to the operative suite and placed in the supine position. General endotrachealanesthesia was induced. A Coello catheter was placed. Preoperative antibiotics were given. ERAS protocol was not followed due to the patient's pre op nausea. A preop surgical timeout was performed. Local anesthetic was injected into the skin and subcutaneous tissues just superior to the umbilicus. An 11 blade scalpel was used to make a 5 mm transverse skin incision in this location. Next, a hemostat was used to spread the tissues down to the level of the fascia and a Geraldine clamp was used to grasp and elevate the umbilical stalk. A Varess needle was used to gain access to the peritoneal space. Low flow insufflation revealed low pressures and then high flow insufflation was undertaken to 15 mmHg. Next, the Varess needle was removed and a 5 mm laparoscopic port was inserted in this location. Through this port, a 5 mm 30 degree laparoscope was inserted. On inspection of the abdomen no injury was caused on entry. Next, the patient was placed in Trendelenburg and rotated slightly to the left. 2 more ports were inserted. A 5 mm port was inserted in the suprapubic region, and a 12 mm port was inserted in the left lower quadrant. Both ports were placed by first anesthetizing the skin and subcutaneous tissues with local anesthetic, then by making an appropriate length incision with an 11 blade scalpel, and finally by placing the port under direct laparoscopic vision. Once the ports were in place, 2 atraumatic graspers were used to identify the area of concern. The appendix, terminal ileum, and cecum were identified. There was marked inflammation and the appendix was noted to be somewhat retrocecal. It was quite long. There were no signs of perforation. Gentle dissection with an atraumatic grasper and sharp dissection with a [place] harmonic scalpel was used to free the lateral attachments of the appendix and to divide mesoappendix, taking care to stay close to the appendix. Then, the base of the appendix was divided with the stapler, using a blue load. Great care was taken to ensure that only the base of the appendix was within the jaws of the stapler and then it was fired. The staple line was inspected and hemostasis was confirmed. Next, the appendix was placed in an Endo Catch bag and removed through the left lower quadrant port. The left lower quadrant port was then reinserted. Again, the staple line was inspected and noted to be hemostatic. A small amount of blood was suctioned from the right lower quadrant. There was no significant fluid in the pelvis. Next, a laparoscopic fascial closure device was used to place a single, interrupted 0 Vicryl suture at the left lower quadrant port. This reapproximated the fascia well. The remaining ports were removed under direct laparoscopic visi on and the abdomen was deflated. Next, the skin edges were reapproximated with 4-0 Monocryl in an interrupted subcuticular fashion. A sterile dressing of skin glue was placed. The Coello catheter was removed at the end of the case. The patient was extubated in the operating room and transferred to the recovery room in stable condition. There were no complications.
--- NOTE | 2024-05-09 19:40 | ANESTHESIA POST OP EVALUATION ---
Anesthesia Post Eval - Post Anesthesia Eval Vitals: Last Vital Signs Temp 36.7 C 05/09/24 19:35 Pulse 82 05/09/24 19:35 Resp 14 05/09/24 19:35 BP 146/78 H 05/09/24 19:35 Pulse Ox 100 05/09/24 19:35 O2 Flow Rate CV Function Including HR & BP: Stable Pain Control: Satisfactory Nausea & Vomiting: Negative Mental Status: Baseline Respiratory Status: Airway Patent Hydration Status: Satisfactory Anesthesia Complications: None
[2024-05-09] MEDS: oxyCODONE 5 MG TABLET PO PRN (22:39)
[2024-05-09] MEDS: ACETAMINOPHEN 500 MG TABLET PO PRN (22:39)
[2024-05-10] MEDS: LORazepam 2 MG/ML VIAL IVP PRN (06:28)
[2024-05-10 08:38] VITALS: BP 124/64; O2SAT 97
--- NOTE | 2024-05-10 08:38 | Discharge Plan ---
Discharge Plan Problem Reviewed?: Yes Disposition: [facility] DC/Xf Condition: Good Prescriptions: polyethylene glycoL 3350(BULK) [Miralax (Bulk)] 17 gm PO DAILY #238 gm oxyCODONE [Roxicodone] 5 mg PO ONCE #5 tablet Diet: Regular Activity Restrictions: No Restrictions Shower Restrictions: Yes (ok to shower, no tub baths or swimming) Driving Restrictions: Yes (do not drive while taking narcotic pain meds) Weight Bearing: Full Weight Instruction Topics: Appendectomy Laparoscopic Dc No Smoking: If you smoke, Please STOP! Call for help.
== END 2024-05-10 10:52 | disposition home or self-care (01) ==
LOC: ED 14:36 → SDS 17:26 → MS2 19:38 → SDS 05-10 10:52
PROVIDERS: ATTEND Surgery
PROC: 0DTJ4ZZ Resection of Appendix, Percutaneous Endoscopic Approach (ICD-10-PCS; principal; 2024-05-09 18:00)
DX: K35.80 Unspecified acute appendicitis (principal); F41.9 Anxiety disorder, unspecified; G47.00 Insomnia, unspecified; I10 Essential (primary) hypertension
CPT/HCPCS: 36415; 44970; 74177; 80053; 83690; 85025; 96365; 99285; A9270; J2060; J3490; J7120; Q9967; 81001; 81003; 87086